=== PATIENT | female | born 1990 ===

== ENCOUNTER 2025-01-29 20:57 | Inpatient (IN) | payer MEDICAID, OTHER ==
[2025-01-29 21:55] VITALS: BMI 41.0
[2025-01-29] MEDS ORDERED: Ondansetron PF 4 MG/2 ML Vial IVP PRN (22:46)
[2025-01-29] MEDS ORDERED: Acetaminophen 500 MG TAB PO PRN (22:46)
[2025-01-29] MEDS ORDERED: hydrALAZINE 20 MG/ML VIAL SLOW IVP PRN ×3 (22:46)
[2025-01-29] MEDS ORDERED: Calcium Gluc 4.6 MEQ/10 ML (100 MG/ML) SLOW IVP PRN (22:46)
[2025-01-29] MEDS ORDERED: Lidocaine 1% (PF) 30 ML VIAL SC PRN (22:46)
[2025-01-29] MEDS ORDERED: Penicillin G Potassium 5 MILL.UNITS in Sodium Chloride 0.9% 100 ML IVPB SCH (23:00)
[2025-01-29] MEDS ORDERED: Oxytocin 30 units/NS 500 ML 500 ML IV SCH ×2 (23:00)
[2025-01-29 23:32] LABS: Hematocrit 39.7 % (34.9-44.5); Hemoglobin 13.2 g/dL (12.0-15.5); Mean Corpuscular Hemoglobin 27.7 pg (27.0-33.0); Mean Corpuscular Volume 83.4 fL (81.6-98.3); Platelet Count 335 10x3/uL (150-450); Red Blood Cell (RBC) Count 4.76 10x6/uL (3.90-5.03); White Blood Cell (WBC) Count 16.37 10x3/uL (3.5-10.5)
[2025-01-29 23:48] LABS: ALT (SGPT) 7 U/L (Less than 34); AST (SGOT) 13 U/L (11-34); Albumin 3.3 g/dL (3.1-4.5); Alkaline Phosphatase 118 U/L (40-110); Anion Gap 17 mmol/L (10-20); BUN (Urea Nitrogen) 6 mg/dL (7.0-18.7); Bilirubin, Total 0.3 mg/dL (0.3-1.2); Calc. Creatinine Clearance 221 mL/min (70-130); Calcium 9.0 mg/dL (7.8-10.44); Carbon Dioxide 16 mmol/L (22-29); Chloride 108 mmol/L (98-107); Globulin 4.2 g/dL (2.4-3.5); Glucose 92 mg/dL (70-105); Potassium 3.9 mmol/L (3.5-5.1); Sodium 137 mmol/L (136-145)
[2025-01-30 00:03] LABS: Hep B Surf Ag - L&D Non-Reactive S/CO (NonReactive)
[2025-01-30 00:05] LABS: Syphilis Antibody Index 0.14 S/CO (<1.00 Non-Reactive)
[2025-01-30] MEDS: fentaNYL/Ropivacaine Epidural 100 ML ONE (00:28)
[2025-01-30] MEDS ORDERED: Acetaminophen 325 MG TAB PO PRN (00:29)
[2025-01-30] MEDS ORDERED: Ondansetron PF 4 MG/2 ML Vial IVP PRN ×2 (00:29→13:53)
[2025-01-30] MEDS ORDERED: diphenhydrAMINE 50 MG/ML VIAL IVP PRN (00:29)
[2025-01-30] MEDS ORDERED: fentaNYL 2 mcg/Ropivacaine 0.2% Epidural 100 ML CADD EPIDURAL SCH (00:30)
[2025-01-30] MEDS ORDERED: Communication Order-Pharmacy FS SCH (00:30)
[2025-01-30] MEDS ORDERED: Penicillin G 2.5 MILL.units 2.5 MILL.UNITS in Premix 1 BAG IVPB SCH (03:00)
[2025-01-30] MEDS ORDERED: Lanolin Ointment 7 GM TUBE TOP PRN (13:53)
[2025-01-30] MEDS ORDERED: Milk Of Magnesia 30 ML UDCUP PO PRN (13:53)
[2025-01-30] MEDS ORDERED: HYDROcodone/Acetaminophen 5/325 mg Tablet PO PRN (13:53)
[2025-01-30] MEDS ORDERED: hydrALAZINE 20 MG/ML VIAL SLOW IVP PRN (13:53)
[2025-01-30] MEDS ORDERED: diphenhydrAMINE 25 MG CAP PO PRN (13:53)
[2025-01-30] MEDS ORDERED: Bisacodyl 10 MG SUPP PR PRN (13:53)
[2025-01-30] MEDS: Boostrix 0.5 ML (Tdap) VIAL (>/=7 yrs of age) IM ONE (14:58)
[2025-01-30] MEDS: Ferrous Sulfate 325 MG TAB PO SCH (15:26)
[2025-01-30] MEDS: Ibuprofen 800 MG TAB PO SCH (15:26)
[2025-01-31 12:16] VITALS: BP 115/58; TEMP 98.4
== END 2025-01-31 16:30 | disposition home or self-care (01) | DRG 807 ==
LOC: CSHLD/OP 20:57 → CSHLD 23:11 → CSHPP 01-30 14:41
PROVIDERS: ADMIT Family Medicine; ATTEND Family Medicine
PROC: 10907ZC Drainage of Amniotic Fluid, Therapeutic from Products of Conception, Via Natural or Artificial Opening (ICD-10-PCS; 2025-01-30)
PROC: 4A1HXCZ Monitoring of Products of Conception, Cardiac Rate, External Approach (ICD-10-PCS; 2025-01-30)
PROC: 10E0XZZ Delivery of Products of Conception, External Approach (ICD-10-PCS; principal; 2025-01-31)
DX: O48.0 Post-term pregnancy (principal); Z37.0 Single live birth; O13.4 Gestational [pregnancy-induced] hypertension without significant proteinuria, complicating childbirth; O76 Abnormality in fetal heart rate and rhythm complicating labor and delivery; Z3A.40 40 weeks gestation of pregnancy
CPT/HCPCS: 36415; 51702; 80053; 85027; 86780; 86850; 86900; 86901; 87340; 99285; J0595